=== PATIENT | male | born 1960 | race Caucasian/White ===

== ENCOUNTER → 2021-02-22 | Outpatient (CLI) | payer OTHER ==
[~2021-02-22] MED LIST: IBUPROFEN800 MG PO
== END ==
LOC: HEART 5 11:05
DX: R91.8 Other nonspecific abnormal finding of lung field (principal); R94.2 Abnormal results of pulmonary function studies
CPT/HCPCS: 94010

== ENCOUNTER → 2021-03-16 | Outpatient (CLI) | payer OTHER ==
[2021-03-16 08:16] LABS: HEMOGLOBIN 13.6 gm/dl (14.0-17.5); RED BLOOD COUNT 4.54 M/UL (4.20-5.50); WHITE BLOOD COUNT 5.6 K/UL (4.5-11.0)
== END ==
LOC: CT 06:43
PROVIDERS: Internal Medicine Pulmonary Disease
DX: C34.31 Malignant neoplasm of lower lobe, right bronchus or lung (principal); J95.811 Postprocedural pneumothorax; F17.210 Nicotine dependence, cigarettes, uncomplicated
CPT/HCPCS: 36415; 71045; 85027; 85610; J2270

== ENCOUNTER → 2021-06-17 | Outpatient (CLI) | payer OTHER | LOC: HEART 5 08:43 | DX: R07.9 Chest pain, unspecified (principal); Z85.118 Personal history of other malignant neoplasm of bronchus and lung | CPT/HCPCS: 94010 ==